=== PATIENT | male | born 1975 | race Caucasian/White ===

== ENCOUNTER 2024-09-30 12:24 | Inpatient (IN) | payer OTHER ==
--- NOTE | 2024-09-30 14:26 | ED ---
General Adult HPI - General Chief complaint: Alcohol Stated complaint: mental health, ETOH Time Seen by Provider: 09/30/24 13:10 Source: patient, RN notes reviewed, old records reviewed Mode of arrival: ambulatory Limitations: no limitations - History of Present Illness Initial comments: 49-year-old male who presents to the emergency department states he is an alcoholic. Patient states he drinks every day. Patient tried to get into a rehabilitation center today but they sent him over to us because he made some statements about wanting to kill himself. Patient states he did make those statements but he just sick of his life so he made those comments. Patient states he did not drink as much as he normally does today and he feels like he started to get the shakes. Patient denies headache patient has numbness weakness. Patient denies any chest pain difficulty breathing or shortness of breath. Patient [place] any abdominal pain patient has nausea vomiting diarrhea. - Related Data Home Medications Medication Instructions Recorded Confirmed No Known Home Medications 09/30/24 09/30/24 Allergies Allergy/AdvReac Type Severity Reaction Status Date / Time No Known Allergies Allergy Verified 09/30/24 15:37 Review of Systems ROS Statement: Those systems with pertinent positive or pertinent negative responses have been documented in the HPI. ROS Other: All systems not noted in ROS Statement are negative. Past Medical History Past Medical History: No Reported History Past Surgical History: No Surgical Hx Reported Smoking Status: Current every day smoker Past Alcohol Use History: Abuse Past Drug Use History: Marijuana General Exam - General Exam Comments Initial Comments: GENERAL: Patient is well-developed and well-nourished. Patient is nontoxic and well- hydrated and is in mild distress. Patient does appear intoxicated ENT: Neck is soft and supple. No significant lymphadenopathy is noted. Oropharynx is clear. Moist mucous membranes. Neck has full range of motion without elici ting any pain. EYES: The sclera were anicteric and conjunctiva were pink and moist. Extraocular m ovements were intact and pupils were equal round and reactive to light. Eyelids were unremarkable. PULMONARY: Unlabored respirations. Good breath sounds bilaterally. No audible rales rhonchi or wheezing was noted. CARDIOVASCULAR: Tachycardic at about 120 beats a minute ABDOMEN: Soft and nontender with normal bowel sounds. SKIN: Skin is clear with no lesions or rashes and otherwise unremarkable. NEUROLOGIC: Patient is alert and oriented x3. Cranial nerves II through XII are grossly int act. Motor and sensory are also intact. Normal speech, volume and content. Symmetrical smile. MUSCULOSKELETAL: Normal extremities with adequate strength and full range of motion. LYMPHATICS: No significant lymphadenopathy is noted PSYCHIATRIC: Normal psychiatric evaluation. Limitations: no limitations Course Vital Signs 09/30/24 09/30/24 13:06 16:11 Temperature 98.6 F Pulse Rate 120 H 105 H Respiratory 20 18 Rate Blood Pressure 133/70 119/80 O2 Sat by Pulse 97 98 Oximetry Medical Decision Making - Medical Decision Making Was pt. sent in by a medical professional or institution (, HEATH, BRAILLE OPERATOR, urgent care, hospital, or intermediate...) When possible be specific @ -No Did you speak to anyone other than the patient for history (EMS, parent, family, police, friend...)? What history was obtained from this source @ -No Did you review nursing and triage notes (agree or disagree)? Why? @ -I reviewed and agree with nursing and triage notes Were old charts reviewed (outside hosp., previous admission, EMS record, old EKG, old radiological studies, urgent care reports/EKG's, intermediate records)? Report findings @ -No old charts were reviewed Differential Diagnosis? @ -Hyponatremia alcohol abuse, alcohol intoxication, alcohol withdrawal, this is not an all-inclusive list EKG interpreted by me (3pts min.). @ -As above X-rays interpreted by me (1pt min.). @ -None done CT interpreted by me (1pt min.). @ -None done U/S interpreted by me (1pt. min.). @ -None done What testing was considered but not performed or refused? (CT, X-rays, U/S, labs)? Why? @ -None What meds were considered but not given or refused? Why? @ -None Did you discuss the management of the patient with other professionals (professionals i.e. HEATH Powers, BRAILLE OPERATOR, lab, RT, psych nurse, social services coordinator, residential manager, teacher, hydrological technical officer, caseworker protective services)? Give summary @ -Spoke with sound physicians he agreed admit the patient we admitted the patient wrote admitting orders Was smoking cessation discussed for >3mins.? @ -No Was critical care preformed (if so, how long)? @ -No Were there social determinants of health that impacted care today? How? (Homelessness, low income, unemployed, alcoholism, drug addiction, transportation, low edu. Level, literacy, decrease access to med. care, intermediate, rehab)? @ -No Was there de-escalation of care discussed even if they declined (Discuss DNR or withdrawal of care, Hospice)? DNR status @ -No What co-morbidities impacted this encounter? (DM, HTN, Smoking, COPD, CAD, Cancer, CVA, ARF, Chemo, Hep., AIDS, mental health diagnosis, sleep apnea, morbid obesity)? @ -None Was patient admitted / discharged? Hospital course, mention meds given and route, prescriptions, significant lab abnormalities, going to OR and other pertinent info. @ -Patient was making statements to the rehabilitation center and that he wanted to hurt himself and he did admit to me that he did say that so patient will be admitted for alcohol intoxication and will see psychiatry once he is sober Undiagnosed new problem with uncertain prognosis? @ -No Drug Therapy requiring intensive monitoring for toxicity (Heparin, Nitro, Insulin, Cardizem)? @ -No Were any procedures done? @ -No Diagnosis/symptom? @ -Alcohol intoxication Acute, or Chronic, or Acute on Chronic? @ -Acute Uncomplicated (without systemic symptoms) or Complicated (systemic symptoms)? @ -Complicate Side effects of treatment? @ -No Exacerbation, Progression, or Severe Exacerbation? @ -No Poses a threat to life or bodily function? How? (Chest pain, [place], [place], pneumonia, PE, COPD, DKA, ARF, appy, cholecystitis, CVA, Diverticulitis, Homicidal, Suicidal, threat to staff... and all critical care pts) @ -Yes this can lead to DTs and Diagnosis/symptom? @ -Suicidal ideations Acute, or Chronic, or Acute on Chronic? @ -Acute Uncomplicated (without systemic symptoms) or Complicated (systemic symptoms)? @ -Complicated Side effects of treatment? @ -None Exacerbation, Progression, or Severe Exacerbation] @ -No Poses a threat to life or bodily function? @ -Yes this can lead to a suicide attempt and possible - Lab Data Result diagrams: 09/30/24 15:50 09/30/24 15:50 Lab Results 09/30/24 09/30/24 Range/Units 15:50 15:50 WBC 8.9 (3.8-10.6) k/uL RBC 5.28 (4.30-5.90) m/uL Hgb 17.8 H (13.0-17.5) gm/dL Hct 53.7 H (39.0-53.0) % MCV 101.8 H (80.0-100.0) fL MCH 33.6 (25.0-35.0) pg MCHC 33.1 (31.0-37.0) g/dL RDW 12.5 (11.5-15.5) % Plt Count 231 (150-450) k/uL MPV 8.3 Neutrophils % 57 % Lymphocytes % 35 % Monocytes % 4 % Eosinophils % 1 % Basophils % 1 % Neutrophils # 5.1 (1.3-7.7) k/uL Lymphocytes # 3.1 (1.0-4.8) k/uL Monocytes # 0.4 (0-1.0) k/uL Eosinophils # 0.1 (0-0.7) k/uL Basophils # 0.1 (0-0.2) k/uL Sodium 144 (137-145) mmol/L Potassium 4.2 (3.5-5.1) mmol/L Chloride 108 H (98-107) mmol/L Carbon Dioxide 15 L (22-30) mmol/L Anion Gap 21 mmol/L BUN 10 (9-20) mg/dL Creatinine 0.82 (0.66-1.25) mg/dL Est GFR (CKD-EPI)AfAm >90 (>60 ml/min/1.73 sqM) Est GFR (CKD-EPI)NonAf >90 (>60 ml/min/1.73 sqM) Glucose 112 H (74-99) mg/dL Calcium 9.1 (8.4-10.2) mg/dL Magnesium 2.3 (1.6-2.3) mg/dL Total Bilirubin 0.9 (0.2-1.3) mg/dL AST 216 H (17-59) U/L ALT 106 H (4-49) U/L Alkaline Phosphatase 91 (38-126) U/L Total Protein 7.5 (6.3-8.2) g/dL Albumin 4.7 (3.5-5.0) g/dL Serum Alcohol 381 H* mg/dL Disposition Clinical Impression: Alcoholic intoxication, Depression, Suicidal ideation Disposition: ADMITTED IP TO THIS HOSP Referrals: None,Stated [Primary Care Provider] - 1-2 days Time of Disposition: 17:09
[2024-09-30 15:59] LABS: Basophils # (A) 0.1 k/uL (0-0.2); Basophils % (A) 1 %; Eosinophils # (A) 0.1 k/uL (0-0.7); Eosinophils % (A) 1 %; HCT 53.7 % (39.0-53.0); HGB 17.8 gm/dL (13.0-17.5); Lymphocytes # (A) 3.1 k/uL (1.0-4.8); Lymphocytes % (A) 35 %; MCH 33.6 pg (25.0-35.0); MCHC 33.1 g/dL (31.0-37.0); MCV 101.8 fL (80.0-100.0); Mean Platelet Volume 8.3; Monocytes # (A) 0.4 k/uL (0-1.0); Monocytes % (A) 4 %; Neutrophils # (A) 5.1 k/uL (1.3-7.7); Neutrophils % (A) 57 %; Platelet Count 231 k/uL (150-450); RBC 5.28 m/uL (4.30-5.90); RDW 12.5 % (11.5-15.5); WBC 8.9 k/uL (3.8-10.6)
[2024-09-30] MEDS: SODIUM CHLORIDE 0.9% 500 ML 500 ML IV ONE (16:07)
[2024-09-30] MEDS: SODIUM CHLORIDE 0.9% 1,000 ML IV ONE ×2 (16:07→17:22)
[2024-09-30] MEDS: LORazepam 2 MG/ML INJ IV STA (16:08)
[2024-09-30 16:17] LABS: ALT 106 U/L (4-49); AST 216 U/L (17-59); African American GFR (CKD) >90 (>60 ml/min/1.73 sqM); Albumin 4.7 g/dL (3.5-5.0); Alkaline Phosphatase 91 U/L (38-126); Anion Gap 21 mmol/L; Blood Urea Nitrogen 10 mg/dL (9-20); Calcium 9.1 mg/dL (8.4-10.2); Carbon Dioxide 15 mmol/L (22-30); Chloride 108 mmol/L (98-107); Glucose 112 mg/dL (74-99); Magnesium 2.3 mg/dL (1.6-2.3); Non-African American GFR(CKD) >90 (>60 ml/min/1.73 sqM); Sodium 144 mmol/L (137-145); Total Bilirubin 0.9 mg/dL (0.2-1.3); Total Protein 7.5 g/dL (6.3-8.2)
[2024-09-30 16:32] LABS: Alcohol 381 mg/dL; Potassium 4.2 mmol/L (3.5-5.1)
[2024-09-30] MEDS ORDERED: LORazepam 1 MG TAB PO PRN (17:10)
[2024-09-30] MEDS ORDERED: LORazepam 0.5 MG TAB PO PRN (17:10)
[2024-09-30] MEDS: THIAMINE 100 MG/ML 2 ML VIAL IM STA (17:22)
[2024-09-30] MEDS ORDERED: NALOXONE 0.4 MG/ML 1 ML VIAL IV PRN (22:30)
[2024-09-30] MEDS ORDERED: ONDANSETRON 4 MG/2 ML VIAL IVP PRN (22:30)
[2024-09-30] MEDS ORDERED: ACETAMINOPHEN TAB 325 MG TAB PO PRN (22:30)
[2024-10-01] MEDS: LORazepam 2 MG/ML INJ IV PRN ×2 (00:50→04:07)
--- NOTE | 2024-10-01 01:53 | P.HPIM ---
History of Present Illness H&P Date: 09/30/24 History of present illness; Patient is a 49-year-old male who presents for alcohol use withdrawal. Patient states he drinks 1/5 to half a gallon every day for over 20 years, last drink was 2 PM today. Today patient tried to enter a rehab facility, however due to concerns about suicidal statements made by patient he was sent here for further evaluation. No history of seizures or hallucinations. He is beginning to have tremors. He does not endorse suicidal ideation at time of questioning, and states he has a lot to live for including taking care of his son. Patient reports absence of fever, chills, chest pain, diaphoresis, dyspnea, cough, abdominal pain, nausea, vomiting, constipation, diarrhea, weakness, myalgia, dizziness, headache, and dysuria. Spoke with the ER physician, patient admission was accepted by internal medicine service for treatment. REVIEW OF SYSTEMS: Pertinent positives and negatives noted in HPI. PHYSICAL EXAMINATION: Vitals reviewed GENERAL: Resting comfortably in bed. Obese. EYES: PERRL, no scleral injection or icterus. No vision loss HENT: Normocephalic, atraumatic, hearing grossly intact, moist mucous membranes NECK: No tracheal deviation, full range of motion. CARDIOVASCULAR: S1 and S2 present. No murmurs, rubs, or gallops. PULMONARY: Chest is clear to auscultation, no wheezing, rhonchi, or crackles. ABDOMEN: Soft, nontender, nondistended. No palpable organomegaly. MUSCULOSKELETAL: No apparent joint swelling and deformities. EXTREMITIES: No apparent cyanosis, clubbing. No pedal edema. NEUROLOGICAL: Alert and oriented. Gross neurological examination with no apparent focal deficits. SKIN: No apparent rashes. ER FINDINGS: Labs significant for WBC 8.9, hemoglobin 17.8, MCV 101.8, sodium 144, potassium 4.2, chloride 108, bicarb 15, BUN 10, creatinine 0.82, glucose 112, AST 216, ALT 108, serum alcohol 381 Assessment and Plan: In summary, patient is a 49-year-old male who presents for alcohol use withdrawal. #Alcohol dependence with withdrawal - Initially alcohol 381, last drink was 2 PM 09/30/[address] daily thiamine, folic acid and Thera - Continue IV NS at 100 mL/h monitor CMP - cardiac monitoring - director social consult #Macrocytosis without anemia polycythemia Hemoglobin 17.8, MCV 101.8 Daily vitamins as above Monitor CBC HCT 53.7 consider outpatient workup for polycythemia and sleep apnea consider theraputic phlebotomy and close monitoring outpatient #Transaminitis, pattern consistent with history of alcohol use AST 216, ALT 108 Monitor CMP #Suicidal ideation Denies SI at this time - Suicide precautions Psychiatry consulted DVT ppx: Subq Lovenox 40 meq daily Code status: Full code F: IV Normal saline 100 mL/h E: Replete as needed N: Normal diet A: Ambulatory Anticipated discharge place: Home Anticipated discharge time: 3-4 days Dictation was produced using [employer] dictation software. Please excuse any grammatical, word or spelling errors. I have seen and evaluated the patient today. I Discussed the case with the resident and agree with the resident's findings I edited the assessment and plan as necessary as documented in the resident's note. Past Medical History Past Medical History: No Reported History Past Surgical History: No Surgical Hx Reported Smoking Status: Current every day smoker Past Alcohol Use History: Abuse Past Drug Use History: Marijuana Medications and Allergies Home Medications Medication Instructions Recorded Confirmed Type No Known Home Medications 09/30/24 09/30/24 History Allergies Allergy/AdvReac Type Severity Reaction Status Date / Time No Known Allergies Allergy Verified 09/30/24 15:37 Physical Exam Vitals: Vital Signs Temp Pulse Resp BP Pulse Ox 09/30/24 17:27 115 H 20 119/80 97 09/30/24 16:11 105 H 18 119/80 98 09/30/24 13:06 98.6 F 120 H 20 133/70 97 Intake and Output 09/30/24 09/30/24 09/30/24 06:59 14:59 22:59 Other: Weight 108.862 kg Results CBC & Chem 7: 09/30/24 15:50 09/30/24 15:50 Labs: Abnormal Lab Results - Last 24 Hours (Table) 09/30/24 09/30/24 Range/Units 15:50 15:50 Hgb 17.8 H (13.0-17.5) gm/dL Hct 53.7 H (39.0-53.0) % MCV 101.8 H (80.0-100.0) fL Chloride 108 H (98-107) mmol/L Carbon Dioxide 15 L (22-30) mmol/L Glucose 112 H (74-99) mg/dL AST 216 H (17-59) U/L ALT 106 H (4-49) U/L Serum Alcohol 381 H* mg/dL
[2024-10-01] MEDS: DEXTROSE 5%-0.45% NACL 1,000 ML IV SCH (03:14)
[2024-10-01] MEDS: ENOXAPARIN 40 MG/0.4 ML SYRINGE SQ SCH (07:57)
[2024-10-01] MEDS: MULTIVITAMINS, THERA 1 EACH TAB PO SCH (07:58)
[2024-10-01] MEDS: FOLIC ACID 1 MG TAB PO SCH (07:58)
[2024-10-01] MEDS: THIAMINE 100 MG TAB PO SCH (07:58)
[2024-10-01 10:48] LABS: ALT 96 U/L (10-49); AST 177 U/L (14-35); Albumin 3.8 g/dL (3.8-4.9); Alkaline Phosphatase 86 U/L (41-126); BUN/Creat Ratio 12.14 Ratio (12.00-20.00); Blood Urea Nitrogen 8.5 mg/dL (9.0-27.0); Calcium 8.4 mg/dL (8.7-10.3); Carbon Dioxide 18.2 mmol/L (21.6-31.8); Chloride 106 mmol/L (96-109); Globulin 1.9 g/dL (1.6-3.3); Glucose 92 mg/dL (70-110); Potassium 3.9 mmol/L (3.5-5.5); Sodium 140 mmol/L (135-145); Total Bilirubin 0.9 mg/dL (0.3-1.2); Total Protein 5.7 g/dL (6.2-8.2)
[2024-10-01 10:50] LABS: Basophils # (A) 0.07 X 10*3/uL (0.00-0.10); Basophils % (A) 1.2 %; Eosinophils # (A) 0.11 X 10*3/uL (0.04-0.35); Eosinophils % (A) 1.8 %; HCT 43.3 % (39.6-50.0); HGB 14.9 g/dL (13.0-17.0); Lymphocytes # (A) 1.59 X 10*3/uL (0.90-5.00); Lymphocytes % (A) 26.6 %; MCH 33.9 pg (27.0-32.0); MCHC 34.4 g/dL (32.0-37.0); MCV 98.6 FL (80.0-97.0); Mean Platelet Volume 11.2 FL (9.5-12.2); Monocytes # (A) 0.42 X 10*3/uL (0.20-1.00); NRBC Per 100 WBC 0 X 10*3/uL (0.00-0.01); Neutrophils # (A) 3.78 X 10*3/uL (1.80-7.70); Neutrophils % (A) 63.2 %; Platelet Count 157 X 10*3/uL (140-440); RBC 4.39 X 10*6/uL (4.40-5.60); RDW 12.6 % (11.5-14.5); WBC 5.98 X 10*3/uL (4.50-10.00)
--- NOTE | 2024-10-01 11:05 | P.PN ---
Subjective Progress Note Date: 10/01/24 Patient is a 49-year-old male who presents for alcohol use withdrawal. Patient states he drinks 1/5 to half a gallon every day for over 20 years, last drink was 2 PM today. Today patient tried to enter a rehab facility, however due to concerns about suicidal statements made by patient he was sent here for further evaluation. No history of seizures or hallucinations. He is beginning to have tremors. He does not endorse suicidal ideation at time of questioning, and states he has a lot to live for including taking care of his son. Patient reports absence of fever, chills, chest pain, diaphoresis, dyspnea, cough, abdominal pain, nausea, vomiting, constipation, diarrhea, weakness, myalgia, dizziness, headache, and dysuria. ER FINDINGS: Labs significant for WBC 8.9, hemoglobin 17.8, MCV 101.8, sodium 144, potassium 4.2, chloride 108, bicarb 15, BUN 10, creatinine 0.82, glucose 112, AST 216, ALT 108, serum alcohol 381 10/01/2024 patient seen and examined at bedside. No acute events overnight. Required 2 mg Ativan per CIWA protocol. Labs today showed WBC 5.98, hematocrit 14.9, platelet count 1 57,000, sodium 140, potassium 3.9, chloride 106, bicarb 18.2, BUN 8.5, creatinine 0.7, glucose 92, calcium 8.4, AST 177, ALT 96, alk phos 86, albumin 2.8. Review of systems: Pertinent positives and negatives as discussed in HPI, a complete review of systems was performed and all other systems are negative. Pertinent imaging and labs reviewed. Physical examination: Vital signs reviewed General: non toxic, no distress, appears at stated age, obese Derm: no unusual rashes/lesions, warm Head: atraumatic, normocephalic, symmetric Eyes: EOMI, anicteric sclera, pupils equal round reactive to light ENT: Nose and ears atraumatic Neck: No cervical lymphadenopathy, trachea midline, supple Mouth: no lip lesion, mucus membranes moist Cardiovascular: S1S2 reg, no murmur Lungs: CTA bilateral, no rhonchi, no rales, no accessory muscle use Abdominal: soft, nontender to palpation, no guarding Ext: muscle strength 5 out of 5 in all 4 extremities grossly, no gross muscle atrophy, no contractures, positive dorsalis pedis pulse bilateral, no edema Neuro: CN II-XI grossly intact, no gross focal neuro deficits Psych: Alert and oriented x3, appropriate affect and mood Assessment and Plan: In summary, patient is a 49-year-old male who presents for alcohol use withdrawal. #. Alcohol dependence with withdrawal #. Chronic alcohol use - Initially alcohol 381, last drink was 2 PM 09/30/2024 - Required 2 mg Ativan overnight CIWA protocol in place daily thiamine, folic acid and multivitamin - Continue IV [id number] saline at 125 cc/h - cardiac monitoring - social media marketing analyst consult #. Transaminitis, pattern consistent with history of alcohol use, r/o liver failure and alcoholic hepatitis AST 177, ALT 96, alk phos 86, albumin 2.8 -Abdominal ultrasound ordered -Check acute hepatitis panel -Check PT PTT Monitor CMP #. Macrocytosis without anemia, improved #. Polycythemia, resolved Hemoglobin 14.9, MCV 98.6, Hct 43.3 Daily vitamins as above Monitor CBC #. Suicidal ideation Denies SI at this time - Suicide precautions Psychiatry consulted DVT ppx: Subq Lovenox 40 meq daily Code status: Full code F: [id number] saline at 125 cc/h E: Replete as needed N: Normal diet A: Ambulatory Keyshayy Luis MD PGY-1/Magisterial District Judge Dictation was produced using [employer] dictation software. please excuse any grammatical, word or spelling errors. I have seen and evaluated the patient today. Discussed with the resident and agree with the residents finding and plan as documented in the resident's note. Changes highlighted in blue font. Objective - Vital Signs Vital signs: Vital Signs Temp 98.3 F 10/01/24 01:34 Pulse 103 H 10/01/24 01:34 Resp 18 10/01/24 01:34 BP 167/90 10/01/24 01:34 Pulse Ox 94 L 10/01/24 01:34 FiO2 Intake & Output 09/30/24 10/01/24 10/01/24 18:59 06:59 18:59 Weight 108.862 kg 108.862 kg Other: # Voids 1 - Labs CBC & Chem 7: 10/01/24 06:33 10/01/24 06:33 Labs: Abnormal Lab Results - Last 24 Hours (Table) 09/30/24 09/30/24 Range/Units 15:50 15:50 Hgb 17.8 H (13.0-17.5) gm/dL Hct 53.7 H (39.0-53.0) % MCV 101.8 H (80.0-100.0) fL Chloride 108 H (98-107) mmol/L Carbon Dioxide 15 L (22-30) mmol/L Glucose 112 H (74-99) mg/dL AST 216 H (17-59) U/L ALT 106 H (4-49) U/L Serum Alcohol 381 H* mg/dL
[2024-10-01 11:33] LABS: Partial Thromboplastin Time 22.2 sec (22.0-30.0); Prothrombin Time 10.9 sec (10.0-12.5)
--- NOTE | 2024-10-01 13:39 | P.CN ---
Psychiatric Consult - . Consult date: 10/01/24 Consult:: 10/01/24 11:58 IDENTIFYING DATA: This patient is a 49-year-old male, is has 1 son, is unemployed, lives with girlfriend in a house. REASON FOR REFERRAL: Psychiatry was consulted for "suicidal ideations, depression" HISTORY OF PRESENT ILLNESS: The patient presented to the hospital initially on 09/30 for alcohol intoxication, apparently drinks daily according to ER report. Patient was apparently sent from [facility] rehab due to suicidal ideations and withdrawals. Patient's LFTs were elevated blood alcohol level was 381 on admission. Patient was seen today he had a one-to-one sitter at his side. He was fairly pleasant and attempting to cooperate. Claims that he is having difficulty stopping alcohol. Claims that he is having cravings. States that has been drinking on and off and increasing for the past 10 years or so. Claims that he drinks about 1/5 of gin or vodka a day. Claims that he believes that is causing more health issues for him and also insomnia. Claims that he has a history of having shakes and also anxiety when he withdrawals, denies any seizures from alcohol withdrawal. Claims that his heart rate is also racing at times. Claims that he is having some mild depression, mainly due to the fact that he is having issues with his alcohol use. Denying any paranoia at this time claims that his sleep has been on and off appetite has been fair.. At this time patient denies any suicidal or homical ideations, intent or plan. Patient denies any auditory, visual hallucinations and denies any paranoia or delusions. Patients admits to using alcohol as noted above, smokes marijuana occasionally, denies any cigarette use or any other recreational drug use. PAST PSYCHIATRIC HISTORY: Patient has a known noted previous psychiatric diagnosis. Patient denies being on any psychiatric medications. Patient denies any previous psychiatric hospitalizations. Claims that he was in counseling in the past. Patient denies any history of suicide attempts in the past. PAST MEDICAL HISTORY: As per ER note ALLERGIES: as per EMR. CHEMICAL DEPENDENCY HISTORY: as per HPI. FAMILY PSYCHIATRIC/SUBSTANCE USE HISTORY: Claims that his daughter from suicide. 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 Right now he is unemployed. She denies any legal history. Claims that he has 1 son he is , lives with his girlfriend in a house. MENTAL STATUS EXAM: General Appearance: Patient appears to be a belt, some tattoos, longer hair, has a kumar, stated age is alert, pleasant, and cooperative. Patient appears to have fair hygiene and grooming wearing hospital gown with fair eye contact. Wearing hospital gown Behavior: Patient is calmly lying in bed without any agitated behavior. Attempts to cooperate Speech: Patient's speech is fluent and nonpressured. Mood/Affect: Patient reports their mood is "a bit depressed because of the alcohol", affect is congruent Suicidality/Homicidality: Patient denies having any suicidal or homicidal ideation intent or plan. Perceptions: Patient denies any visual hallucinations and denies any auditory hallucinations Though content/process: There is no evidence of any delusional thought content and thought process is linear and goal-directed. Memory and concentration: AOX3, grossly intact for the purposes of this session. Can spell "WORLD" backwards Judgment and insight: fair IMPRESSIONS: Depressive disorder unspecified Alcohol use disorder severe dependence Cannabis use disorder mild PLAN: -At this time patient DOES NOT meet criteria for inpatient psychiatric admission. -Would recommend the following medication changes/additions: Zoloft 50 mg daily for mood/anxiety, trazodone 50 mg nightly for insomnia/mood, Librium 20 mg 3 times daily with plan to titrate off over the next 2 or 3 days for alcohol withdrawal. Will wait until patient's LFTs improve closer towards baseline to give naltrexone p.o. 50 mg for alcohol cravings -CIWA protocol with PRN Ativan for alcohol withdrawal. Continue to monitor vital signs. -Can discontinue 1:1 sitter at this time as patient is not currently an imminent threat to themselves -tea plantation worker to provide patient with outpatient mental health/psychiatry resources for appropriate follow up upon discharge -Dog Raiser spoke with patient about substance abuse and the harmful effects on medical and mental health, patient verbally understood and agreed. -Patient states that he is willing to go back to [facility] to continue on with inpatient rehab upon discharge -Communicated plan to patient's nurse -Psychiatry will sign off at this time, however will see patient again for f/u if requested -Please contact with any questions. 10/01/24 13:32 10/01/24 13:36
[2024-10-01] MEDS ORDERED: NALTREXONE HCL 50 MG TAB PO SCH (13:45)
[2024-10-01] MEDS: SERTRALINE 50 MG TAB PO SCH (14:12)
[2024-10-01 16:11] LABS: Hepatitis A Antibody IgM Nonreactive (Nonreactive); Hepatitis B Core IgM Nonreactive (Nonreactive); Hepatitis B Surface Antigen Nonreactive (Nonreactive); Hepatitis C IgG Antibody Nonreactive (Nonreactive)
[2024-10-01] MEDS: traZODone HCL 50 MG TAB PO SCH (20:11)
[2024-10-01] MEDS: MELATONIN 3 MG TABLET PO PRN (20:11)
--- NOTE | 2024-10-02 07:43 | US ---
EXAMINATION TYPE: US abdomen limited DATE OF EXAM: 10/02/2024 COMPARISON: NONE CLINICAL INDICATION: Male, 49 years old with history of transaminitis; Abnormal LFT's, ETOH abuse TECHNIQUE: Grayscale and color Doppler imaging of the right upper quadrant was performed. FINDINGS: EXAM MEASUREMENTS: Liver Length: 22.0 cm Gallbladder Wall: 0.3 cm CBD: 0.5 cm Right Kidney: 12.4 x 6.0 x 6.6 cm RATE SETTER NOTES: Pancreas: wnl, tail obscured by overlying bowel gas Liver: Enlarged, heterogeneous, difficult to penetrate Gallbladder: Large gallstone within lumen= 4.8 cm, wall thickness upper limits of normal Evidence for sonographic Jordan's sign: No CBD: wnl Right Kidney: No evidence of hydro, difficult to visualize due to enlarged liver IMPRESSION: 1. No evidence for acute process. 2. Hepatic steatosis. 3. Large gallstone measuring up to 4.8 cm. [facility], , 10/02/2024 7:40 AM
[2024-10-02 08:49] LABS: Basophils % (A) 1 %; Eosinophils # (A) 0.2 k/uL (0-0.7); Eosinophils % (A) 3 %; HCT 49.6 % (39.0-53.0); HGB 15.9 gm/dL (13.0-17.5); Lymphocytes # (A) 1.1 k/uL (1.0-4.8); Lymphocytes % (A) 20 %; MCHC 32.1 g/dL (31.0-37.0); MCV 102.7 fL (80.0-100.0); Macrocytosis Slight; Monocytes # (A) 0.4 k/uL (0-1.0); Monocytes % (A) 6 %; Neutrophils # (A) 3.9 k/uL (1.3-7.7); Neutrophils % (A) 69 %; Platelet Count 161 k/uL (150-450); RBC 4.82 m/uL (4.30-5.90); RDW 12.2 % (11.5-15.5); WBC 5.6 k/uL (3.8-10.6)
[2024-10-02 09:02] LABS: ALT 85 U/L (4-49); AST 127 U/L (17-59); African American GFR (CKD) >90 (>60 ml/min/1.73 sqM); Albumin/Globulin Ratio 1.5; Alkaline Phosphatase 84 U/L (38-126); Anion Gap 7 mmol/L; Blood Urea Nitrogen 5 mg/dL (9-20); Calcium 9.4 mg/dL (8.4-10.2); Carbon Dioxide 26 mmol/L (22-30); Chloride 103 mmol/L (98-107); Globulin 2.7 g/dL; Glucose 126 mg/dL (74-99); Non-African American GFR(CKD) >90 (>60 ml/min/1.73 sqM); Potassium 3.9 mmol/L (3.5-5.1); Sodium 136 mmol/L (137-145); Total Bilirubin 2.1 mg/dL (0.2-1.3); Total Protein 6.7 g/dL (6.3-8.2)
[2024-10-02] MEDS: LORazepam 2 MG/ML INJ IV PRN (09:56)
--- NOTE | 2024-10-02 13:24 | P.PN ---
Progress Note - Text Progress Note Date: 10/02/24 Interval history: Patient was seen today for psychiatric follow-up. Patient was seen sitting at the side of his bed eating lunch. Claims that he is doing bit better today continues to report some anxiety. Claims that he still having some minor withdrawal symptoms including some shakes. Claims that the Ativan has been helping and the Librium did help. He states that he has been having some improvement in his mood since yesterday. Claims that he was getting frustrated with the treatment earlier this morning however has settled down. He claims that he is able to stay for 1 more day in the hospital before wanting to leave. Claims that he is still interested in going to [facility]. He claims that he did not get much rest last night with the trazodone however was agreeable to have it increased for tonight. Claims that he is eating fairly. Denies any auditory or visual hallucinations, denies any suicidal homicidal ideations intent or plan. Not reporting any side effects on medications. MENTAL STATUS EXAM: General Appearance: Patient appears to be a belt, some tattoos, longer hair, has a kumar, stated age is alert, pleasant, and cooperative improving. Patient appears to have fair hygiene and grooming wearing hospital gown with fair eye contact. Wearing hospital gown Behavior: Patient is calmly lying in bed without any agitated behavior. More cooperative today Speech: Patient's speech is fluent and nonpressured. Mood/Affect: Patient reports their mood is "just a bit anxious", affect is congruent Suicidality/Homicidality: Patient denies having any suicidal or homicidal ideation intent or plan. Perceptions: Patient denies any visual hallucinations and denies any auditory hallucinations Though content/process: There is no evidence of any delusional thought content and thought process is linear and goal-directed. More future oriented today Memory and concentration: AOX3, grossly intact for the purposes of this session Judgment and insight: fair IMPRESSIONS: Depressive disorder unspecified Alcohol use disorder severe dependence Cannabis use disorder mild PLAN: -At this time patient DOES NOT meet criteria for inpatient psychiatric admission. -Would recommend the following medication changes/additions: Zoloft 50 mg daily for mood/anxiety, increase trazodone 100 mg nightly for insomnia/mood, decrease Librium 10 mg 3 times daily with plan to titrate off over the next 1-2 days for alcohol withdrawal. Patient's LFTs continue to improve today, will start naltrexone p.o. 50 mg for alcohol cravings -CIWA protocol with PRN Ativan for alcohol withdrawal. Continue to monitor vital signs. -shed workers supervisor to provide patient with outpatient mental health/psychiatry resources for appropriate follow up upon discharge -[employer]er [employer]ologist spoke with patient about substance abuse and the harmful effects on medical and mental health, patient verbally understood and agreed. -Patient states that he is willing to go back to [facility] to continue on with inpatient rehab upon discharge -Communicated plan to patient's nurse -Psychiatry will sign off at this time -Please contact with any questions.
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
[2024-10-02] MEDS ORDERED: LORazepam 1 MG/0.5 ML VIAL IV PRN ×3 (14:53→14:55)
[2024-10-02] MEDS: diazePAM 5 MG TAB PO SCH (15:33)
[2024-10-02] MEDS: traZODone HCL 100 MG TAB PO SCH (19:38)
[2024-10-03 06:26] LABS: Basophils % (A) 0 %; Eosinophils # (A) 0.3 k/uL (0-0.7); Eosinophils % (A) 5 %; HCT 48.7 % (39.0-53.0); HGB 16.2 gm/dL (13.0-17.5); Lymphocytes # (A) 1.6 k/uL (1.0-4.8); Lymphocytes % (A) 25 %; MCH 33.8 pg (25.0-35.0); MCHC 33.3 g/dL (31.0-37.0); MCV 101.5 fL (80.0-100.0); Monocytes # (A) 0.4 k/uL (0-1.0); Monocytes % (A) 7 %; Neutrophils # (A) 4.1 k/uL (1.3-7.7); Neutrophils % (A) 62 %; Platelet Count 129 k/uL (150-450); RDW 12.6 % (11.5-15.5); WBC 6.6 k/uL (3.8-10.6)
[2024-10-03 06:49] LABS: ALT 92 U/L (4-49); AST 129 U/L (17-59); African American GFR (CKD) >90 (>60 ml/min/1.73 sqM); Albumin/Globulin Ratio 1.6; Alkaline Phosphatase 77 U/L (38-126); Anion Gap 10 mmol/L; Blood Urea Nitrogen 6 mg/dL (9-20); Calcium 9.5 mg/dL (8.4-10.2); Carbon Dioxide 24 mmol/L (22-30); Chloride 104 mmol/L (98-107); Globulin 2.5 g/dL; Glucose 102 mg/dL (74-99); Non-African American GFR(CKD) >90 (>60 ml/min/1.73 sqM); Potassium 3.8 mmol/L (3.5-5.1); Sodium 138 mmol/L (137-145); Total Bilirubin 1.7 mg/dL (0.2-1.3); Total Protein 6.5 g/dL (6.3-8.2)
[2024-10-03 08:02] VITALS: BP 159/95; PULSE 88; RESP 18; TEMP 98.4
[2024-10-03] MEDS: NALTREXONE HCL 50 MG TAB PO SCH (08:30)
--- NOTE | 2024-10-03 15:13 | P.DS ---
Providers Date of admission: 09/30/24 17:10 Attending physician: Royal Peoples Consults: 09/30/24 17:09 Consult Physician Urgent Consulting Provider: Psychiatry - [facility] Psychiatry Consult Reason/Comments: Suicidal ideations, depression Do you want consulting provider notified?: Already Contacted Primary care physician: Stated None Hospital Course: Hospital Course: Patient is a 49-year-old male who presents for alcohol use withdrawal. Patient states he drinks 1/5 to half a gallon every day for over 20 years, last drink was 2 PM 10/03. Patient was admitted for alcohol dependence with impending withdrawal, and suicidal ideation. Ordered Ativan per [facility] protocol, thiamine, folic acid and multivitamins, IV fluids, cardiac monitoring, seizure precautions, and psychiatry was consulted. Psychiatry prescribed trazodone, naltrexone and sertraline to control for mood and anxiety and alcohol cravings. Patient required high doses of Ativan and was placed on Librium then Valium. Patient had elevated liver function tests on admission and abdominal ultrasound and hepatitis panel and coag panel was ordered. Acute hepatitis panel was negative, coagulation studies were normal. Abdominal ultrasound showed no evidence for acute process, hepatic steatosis and large gallstone measuring up to 4.8 cm. Patient symptoms improved throughout hospital stay. Patient is cleared for discharge today and was prescribed oral folic acid, thiamine, trazodone, naltrexone and sertraline. Patient is advised to follow-up with PCP for follow- up regarding cholelithiasis and hepatic steatosis and monitoring of sertraline and trazodone on outpatient basis. Final Diagnosis: #. Alcohol dependence with withdrawal #. Chronic alcohol use #. Transaminitis, pattern consistent with history of alcohol use, improving #. Cholelithiasis #. Hepatic Steatosis #. Macrocytosis without anemia, improved #. Polycythemia, resolved #. Suicidal ideation Physical examination: Vital signs reviewed General: non toxic, no distress Derm: no unusual rashes/lesions, warm Head: atraumatic, normocephalic, symmetric Eyes: EOMI, anicteric sclera, pupils equal round reactive to light ENT: Nose and ears atraumatic Neck: No cervical lymphadenopathy, trachea midline, supple Mouth: no lip lesion, mucus membranes moist Cardiovascular: S1S2 reg, no murmur Lungs: CTA bilateral, no rhonchi, no rales, no accessory muscle use Abdominal: soft, nondistended, nontender to palpation, no guarding Ext: muscle strength 5 out of 5 in all 4 extremities grossly, no gross muscle atrophy, no contractures, positive dorsalis pedis pulse bilateral, no edema Neuro: CN II-XI grossly intact, no gross focal neuro deficits Psych: Alert, oriented, appropriate affect and mood I saw and evaluated the patient during the inman and critical portions of this encounter, and discussed the case in detail with the resident author of this note, I agree with the Assessment and Plan, and my changes, if any, are highlighted in blue. A total of 34 minutes was spent discharging this patient Patient Condition at Discharge: Serious Plan - Discharge Summary Discharge Rx Participant: No New Discharge Prescriptions: New Folic Acid 1 mg PO DAILY #90 tab Thiamine [Vitamin B-1] 100 mg PO DAILY #90 tab traZODone HCL [Desyrel] 100 mg PO HS #30 tab Naltrexone HCl [Revia] 50 mg PO DAILY #30 tab Sertraline [Zoloft] 50 mg PO DAILY #30 tab Discharge Medication List Folic Acid 1 mg PO DAILY #90 tab 10/03/24 [Rx] Naltrexone HCl [Revia] 50 mg PO DAILY #30 tab 10/03/24 [Rx] Sertraline [Zoloft] 50 mg PO DAILY #30 tab 10/03/24 [Rx] Thiamine [Vitamin B-1] 100 mg PO DAILY #90 tab 10/03/24 [Rx] traZODone HCL [Desyrel] 100 mg PO HS #30 tab 10/03/24 [Rx] Follow up Appointment(s)/Referral(s): Key Luis MD [RESIDENT] - 1 Week (office isnot answering Please call to schedule appointment ) Activity/Diet/Wound Care/Special Instructions: See PCP for monitoring of Sertraline and Trazodone and follow up Discharge/Stand Alone Forms: AA [facility] [place], Outpatient Counseling, Inp Substance Abuse Facilities, Area PCPs Discharge Disposition: HOME SELF-CARE
== END 2024-10-03 13:20 | disposition home or self-care (01) | DRG 880 ==
LOC: EC 12:24 → 6NMEDSUR 17:10 → OBSVTOIN 17:10 → 4SSUR 17:41
PROVIDERS: ADMIT Student in an Organized Health Care Education/Training Program; ATTEND Student in an Organized Health Care Education/Training Program
DX: R45.851 Suicidal ideations (principal); D75.1 Secondary polycythemia; F10.229 Alcohol dependence with intoxication, unspecified; F12.10 Cannabis abuse, uncomplicated; F32.A Depression, unspecified; K76.0 Fatty (change of) liver, not elsewhere classified; F10.239 Alcohol dependence with withdrawal, unspecified; F41.9 Anxiety disorder, unspecified; K80.20 Calculus of gallbladder without cholecystitis without obstruction; Y90.8 Blood alcohol level of 240 mg/100 ml or more; Z56.0 Unemployment, unspecified; G47.00 Insomnia, unspecified; D75.89 Other specified diseases of blood and blood-forming organs; Z81.8 Family history of other mental and behavioral disorders
CPT/HCPCS: 36415; 76705; 80053; 80074; 80320; 83735; 85025; 85610; 85730; 96372; 96374; 99285